=== PATIENT | male | born 1960 | race Two or more races ===

== ENCOUNTER 2021-05-12 07:10 | Emergency (ER) | payer OTHER ==
[~2021-05-12] VITALS: Ht 182.9 cm; Wt 115.0 kg
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
[2021-05-12] MEDS ORDERED: KETOROLAC 30 MG/1 ML ONE (07:46)
[2021-05-12] MEDS ORDERED: ACETAMINOPHEN 500 MG TABLET ONE (07:47)
[2021-05-12] MEDS ORDERED: CYCLOBENZAPRINE 10 MG TABLET ONE (07:47)
--- NOTE | 2021-05-12 07:54 | NUR ---
PT TO RADIOLOGY
[2021-05-12] MEDS ORDERED: CYCLOBENZAPRINE 10 MG TABLET PO ONE (08:00)
[2021-05-12] MEDS ORDERED: KETOROLAC 30 MG/1 ML IM ONE (08:00)
[2021-05-12] MEDS ORDERED: ACETAMINOPHEN 500 MG TABLET PO ONE (08:00)
[2021-05-12] MEDS ORDERED: PLEASE ENTER ALLERGIES MC SCH (08:00)
--- NOTE | 2021-05-12 08:16 | NUR ---
PT RETURNED FROM XRAY, HOOKED TO MONITOR. MEDICATED PER MAR, DENIES OTHER NEEDS. CALL LIGHT W/IN REACH.
[2021-05-12 08:55] VITALS: BP 188/109
--- NOTE | 2021-05-12 08:57 | NUR ---
Patient given discharge instructions and they have confirmed that they understand the instructions. Patient ambulatory with steady gait.
== END 2021-05-12 09:16 | disposition home or self-care (01) ==
LOC: ED 07:30
DX: S39.012A Strain of muscle, fascia and tendon of lower back, initial encounter (principal); I10 Essential (primary) hypertension; V49.49XA Driver injured in collision with other motor vehicles in traffic accident, initial encounter; Y93.89 Activity, other specified; Y92.89 Other specified places as the place of occurrence of the external cause; Y99.8 Other external cause status
CPT/HCPCS: 72110; 96372; 99283; J1885